=== PATIENT | male | born 1960 | race Caucasian/White ===

== ENCOUNTER → 2020-03-03 09:30 | Outpatient (CLI) | payer OTHER, SELFPAY ==
[2020-03-03 10:40] LABS: Hemoglobin A1C% w Est Avg Glu 5.9 % (4.0-6.0)
[2020-03-03 11:20] LABS: Alanine Aminotransferase 28 IU/L (<50); Albumin 4.7 g/dL (3.5-5.0); Albumin Globulin Ratio 1.6 (1.0-2.8); Alkaline Phosphatase 63 U/L (38-126); Aspartate Aminotransferase 29 IU/L (17-59); BUN Creatinine Ratio 22.3 (6-22); Bilirubin Total 0.6 mg/dL (0.2-1.3); Blood Urea Nitrogen 23 mg/dL (9-20); Calcium 9.7 mg/dL (8.4-10.2); Carbon Dioxide 30 mmol/L (22-32); Chloride 102 mmol/L (98-107); Cholesterol 224 mg/dL (140-199); Estimated Glomerular Filt Rate > 60.0 mL/min (>60); Globulin 2.9 g/dL (1.7-4.1); Glucose 96 mg/dL (80-110); HDL Cholesterol 61 mg/dL (40-60); HEMOLYSIS < 15 (0-50); LDL Cholesterol Calculated 146 mg/dL (<100); Potassium 4.1 mmol/L (3.4-5.1); Sodium 136 mmol/L (137-145); Total Protein 7.6 g/dL (6.3-8.2); Triglycerides 86 mg/dL (35-150)
[2020-03-03 11:23] LABS: Creatinine Urine Random 23.1 mg/dL
[2020-03-03 11:28] LABS: Microalbumin Urine Random < 0.6 mg/dL (0-1.6)
[2020-03-04 18:20] LABS: Hep C Virus Ab w/Reflex Quant NEGATIVE s/c (NEGATIVE)
== END ==
PROVIDERS: PCP Family Medicine; Referring Provider Family Medicine; Visit Provider Family Medicine
DX: E11.9 Type 2 diabetes mellitus without complications (principal)
CPT/HCPCS: 36415; 80053; 80061; 82043; 82570; 83036; 86803

== ENCOUNTER → 2020-07-24 11:02 | Outpatient (CLI) | payer OTHER, SELFPAY ==
--- NOTE | 2020-07-24 11:05 | DI.CT.S_ITS ---
PROCEDURE: CT KIDNEY URETER BLADDER (KUB) INDICATIONS: Calculus of kidney TECHNIQUE: Noncontrast 5 mm thick sections acquired from the diaphragms to the symphysis. 5 mm thick coronal and sagittal reformats were then performed. For radiation dose reduction, the following was used: automated exposure control, adjustment of mA and/or kV according to patient size. COMPARISON: None. FINDINGS: Image quality: Excellent. Lung bases: Lung bases are clear. Heart size is normal. Urinary system: Both kidneys are normal in size. There is a 5 millimeter right mid ureteral stone causing mild right hydronephrosis. Density of the stone measures 1150 Hounsfield units. Bladder wall thickness is normal. Other solid organs: Liver is normal in size. Gallbladder is normal. Pancreas is normal in contours. Spleen is normal in size. No adrenal nodules. Peritoneum and bowel: Unenhanced bowel loops demonstrate normal wall thickness and caliber. No free fluid or air. Nodes and vessels: No retroperitoneal or mesenteric adenopathy by size criteria. Aorta and inferior vena cava are normal in caliber. Abdominal wall: No ventral hernias. Pelvis: No free pelvic fluid. No inguinal hernias or adenopathy. Bones: No suspicious bony lesions. No vertebral body compression fractures. IMPRESSION: 6 millimeter right mid ureteral stone causing mild right hydronephrosis. Dictated by: Jonathon Christianson M.D. on 07/24/2020 at 17:56 Approved by: Jonathon Christianson M.D. on 07/24/2020 at 18:02
== END ==
PROVIDERS: PCP Family Medicine; Referring Provider Physician Assistant; Visit Provider Physician Assistant
DX: N20.0 Calculus of kidney (principal)
CPT/HCPCS: 74176

== ENCOUNTER → 2020-09-18 07:33 | Outpatient (CLI) | payer OTHER, SELFPAY ==
[2020-09-18 09:45] LABS: Hemoglobin A1C% w Est Avg Glu 5.7 % (4.0-6.0)
== END ==
PROVIDERS: PCP Family Medicine; Referring Provider Family Medicine; Visit Provider Family Medicine
DX: E11.9 Type 2 diabetes mellitus without complications (principal); E78.2 Mixed hyperlipidemia
CPT/HCPCS: 36415; 83036

== ENCOUNTER → 2021-07-03 07:48 | Outpatient (CLI) | payer OTHER, SELFPAY ==
[2021-07-03 08:59] LABS: Hemoglobin A1C% w Est Avg Glu 6.1 % (4.0-6.0)
[2021-07-03 09:11] LABS: Cholesterol 230 mg/dL (140-199); HDL Cholesterol 49 mg/dL (40-60); LDL Cholesterol Calculated 163 mg/dL (<100); Triglycerides 90 mg/dL (35-150)
== END ==
PROVIDERS: PCP Family Medicine; Referring Provider Family Medicine; Visit Provider Family Medicine
DX: E11.9 Type 2 diabetes mellitus without complications (principal); E78.5 Hyperlipidemia, unspecified
CPT/HCPCS: 36415; 80061; 83036